=== PATIENT | female | born 1955 | race Native Hawaiian/Other Pacific Islander ===

== ENCOUNTER 2017-08-29 16:18 | Outpatient (CLI) | payer OTHER ==
[~2017-08-29 16:18] MED LIST: NEXIUM40 M1 PO; SERT100T PO
== END 2017-08-29 22:07 | disposition home or self-care (01) ==
LOC: RAD 16:18
DX: M79.672 Pain in left foot (principal)

== ENCOUNTER 2018-09-20 14:49 | Emergency (ER) | payer OTHER ==
[~2018-09-20] VITALS: Ht 172.7 cm; Wt 90.7 kg
[2018-09-20 16:52] VITALS: BP 168/88; TEMP 98.1
== END 2018-09-20 16:52 | disposition home or self-care (01) ==
LOC: ED 14:49
DX: S63.502A Unspecified sprain of left wrist, initial encounter (principal); W19.XXXA Unspecified fall, initial encounter
CPT/HCPCS: 99282

== ENCOUNTER 2018-11-09 09:55 | Emergency (ER) | payer OTHER ==
[~2018-11-09] VITALS: Ht 172.7 cm; Wt 102.1 kg
[2018-11-09 09:55] VITALS: TEMP 97.5
[2018-11-09 10:24] LABS: PLATELET COUNT 245 K/uL (152-353)
[2018-11-09 10:28] LABS: POTASSIUM 2.8 mmol/L (3.6-5.2)
[2018-11-09 15:45] VITALS: BP 143/79
== END 2018-11-09 15:45 | disposition home or self-care (01) ==
LOC: ED 10:00
PROVIDERS: Family Medicine
DX: K52.9 Noninfective gastroenteritis and colitis, unspecified (principal); E87.6 Hypokalemia; R51 Headache
CPT/HCPCS: 36415; 80053; 81000; 82150; 83690; 85027; 87015; 87045; 87328; 87329; 87899; 96360; 96361; 96376; 99284; J2405

== ENCOUNTER 2018-11-10 14:38 | Inpatient (IN) | payer OTHER ==
[~2018-11-10] VITALS: Ht 165.1 cm; Wt 110.9 kg
[2018-11-10 15:58] VITALS: BP 143/66; TEMP 99.4; Ht 165.1 cm; Wt 110.9 kg
[2018-11-10 16:46] LABS: PLATELET COUNT 229 K/uL (152-353)
[2018-11-10 17:00] LABS: POTASSIUM 2.5 mmol/L (3.6-5.2)
[2018-11-10 19:40] VITALS: BP 127/60; TEMP 99.4
[2018-11-11] VITALS (7 sets, daily range): BP systolic 112–146; BP diastolic 42–67; TEMP 97.6–99
[2018-11-11 05:40] LABS: POTASSIUM 2.7 mmol/L (3.6-5.2)
[2018-11-11 18:50] LABS: POTASSIUM 3.3 mmol/L (3.6-5.2)
[2018-11-12 03:58] VITALS: BP 113/50; TEMP 97.8
[2018-11-12 05:34] LABS: POTASSIUM 3.5 mmol/L (3.6-5.2)
[2018-11-12 08:00] VITALS: BP 145/69; TEMP 98.5
[2018-11-12 12:00] VITALS: BP 116/55; TEMP 98.4
[2018-11-12 16:00] VITALS: BP 125/65; BP 136/69; TEMP 97.4; TEMP 99.3
[2018-11-12 20:00] VITALS: BP 142/59; TEMP 99.1
[2018-11-13] VITALS: BP 122/56; TEMP 99.8
[2018-11-13 04:00] VITALS: BP 102/61; TEMP 98.5
[2018-11-13 05:33] LABS: POTASSIUM 3.6 mmol/L (3.6-5.2)
[2018-11-13 08:00] VITALS: BP 109/52; TEMP 99
[2018-11-13 12:00] VITALS: BP 118/56; TEMP 98.3
[2018-11-13 16:00] VITALS: BP 125/50; TEMP 99.5
[2018-11-13 20:00] VITALS: BP 110/53; TEMP 98.1
[2018-11-14] VITALS: BP 106/48; TEMP 98.1
[2018-11-14 04:00] VITALS: BP 115/48; TEMP 98.3
[2018-11-14 08:05] VITALS: BP 136/60; TEMP 97.8
[2018-11-14 12:07] VITALS: BP 115/61; TEMP 97.6
== END 2018-11-14 14:10 | disposition home or self-care (01) | DRG 373 ==
LOC: MED/SURG 14:38
PROVIDERS: ADMIT Internal Medicine
DX: A02.0 Salmonella enteritis (principal); E87.6 Hypokalemia; K21.9 Gastro-esophageal reflux disease without esophagitis; E86.0 Dehydration
CPT/HCPCS: 36415; 80048; 80053; 81000; 82150; 83690; 83735; 84132; 85027; 87324; 87449; 93005; J1956; J2270; J2405; J3475; J3480; J3490

== ENCOUNTER 2019-07-09 15:02 | Outpatient (CLI) | payer OTHER ==
[2019-07-09 15:15] LABS: PLATELET COUNT 321 K/uL (152-353)
[2019-07-09 15:37] LABS: POTASSIUM 4.4 mmol/L (3.6-5.2)
== END 2019-07-09 20:55 | disposition home or self-care (01) ==
LOC: LAB 15:02
PROVIDERS: Nurse Practitioner Family
DX: Z00.00 Encounter for general adult medical examination without abnormal findings (principal); E87.6 Hypokalemia; R53.83 Other fatigue; R63.5 Abnormal weight gain; F32.9 Major depressive disorder, single episode, unspecified; K21.9 Gastro-esophageal reflux disease without esophagitis; Z79.899 Other long term (current) drug therapy; R53.81 Other malaise
CPT/HCPCS: 80053; 80061; 82306; 82607; 83036; 84439; 84443; 84481; 85027

== ENCOUNTER 2019-09-05 14:34 | Outpatient (CLI) | payer OTHER | END 2019-09-05 19:32 | disposition home or self-care (01) | LOC: RAD 14:34 | DX: J20.8 Acute bronchitis due to other specified organisms (principal) ==

== ENCOUNTER 2019-11-05 11:31 | Outpatient (CLI) | payer OTHER | END 2019-11-05 21:38 | disposition home or self-care (01) | LOC: US 11:31 | DX: I82.401 Acute embolism and thrombosis of unspecified deep veins of right lower extremity (principal) ==

== ENCOUNTER 2019-11-12 09:46 | Outpatient (CLI) | payer OTHER | END 2019-11-12 20:15 | disposition home or self-care (01) | LOC: MRI 09:46 | DX: M25.562 Pain in left knee (principal) ==